=== PATIENT | female | born 1945 | race Caucasian/White ===

== ENCOUNTER 2024-12-26 17:49 | Emergency (ER) | payer MEDICARE, SELFPAY ==
[2024-12-26 17:54] VITALS: BP 162/74
[2024-12-26 21:44] VITALS: BP 135/56
[2024-12-26 21:45] VITALS: BMI 25.3
--- NOTE | 2024-12-26 21:48 | EDRN ---
the pt took 1000mg tylenol at Noon for neck pain. the pt took muscle relaxer Flexeril at 3pm today for neck pain.
[2024-12-26] MEDS: TYLENOL 1000 MG PO (22:18)
--- NOTE | 2024-12-26 22:22 | ED.MUSCINJ ---
HPI-Injury
General
Chief Complaint: Musculo-Skeletal Complaint
Time Seen by Provider: 12/26/24 22:00
Nursing documentation reviewed up to this point in time: agreed with
History of Present Illness-Injury
Initial Injury comments:
79-year-old female presents to the ER for evaluation of worsening neck pain over the last 2 weeks. No preceding trauma. She did previously have neck discomfort which was treated with injections at pain management 3 years ago. She states that her
blood sugars have been elevated-but reports the high was 150. She denies fevers. No paresthesias to arms or legs. No extremity weakness. She reports the pain to be radiating from her neck up to her head. She has been using Tylenol and Flexeril
without any improvement in her symptoms.
Review of Systems
Review of Systems
Allergies reviewed?: Yes
Phy Exam
Physical Exam
Physical Exam:
Patient is awake, alert, appears uncomfortable, head is normocephalic atraumatic, mucous membranes moist, speech is clear, with limited active range of motion of her neck, no midline pain on palpation of cervical spine, severe paraspinal
hypertonicity throughout cervical musculature and into bilateral trapezius-no overlying skin change, intact sensation to light touch symmetric bilateral upper extremities with equal senior bi developer strength and equal interosseous motor function, brisk cap
refill present to the hands, no weakness noted to arms or legs, GCS is 15
Injury Course
Orders/Labs/Results
Orders:
Orders
12/26/24 18:02
CT Cervical Spine W/o Iv Contr Urgent
Comment:
Reason For Exam: neck tenderness, neck and head pain
CT Head W/o Iv Contrast Urgent
Comment:
Reason For Exam: neck and head pain, throbbing
12/26/24 22:14
Acetaminophen [Tylenol] 1,000 mg PO NOW STA
12/26/24 22:22
diazePAM [Valium Injection] 5 mg IM NOW STA
12/26/24 22:35
Lidocaine [Lidocaine 4% Patch] 1 patch .ROUTE .STK-MED ONE
12/26/24 22:37
Lidocaine [Lidocaine 4% Patch] 1 patch TOPICAL NOW STA
Apply Lidocaine patch(s) to:: neck
12/27/24 08:00
Lidocaine [Lidocaine 4% Patch] 1 patch TOPICAL DAILY
Apply Lidocaine patch(s) to:: neck
MDM/Problems Addressed
Differential Diagnosis Includes:
Differential diagnosis to consider but not limited to muscle spasm, strain, osteoarthritis, cervical radiculopathy along with other etiologies considered
Chronic conditions affecting care:
Advanced age, A-fib, diabetes, long-term use of anticoagulant
*Radiology
Radiology exam reviewed: radiology read reviewed (FINDINGS: No acute fractures nor dislocations are noted. There is moderate disc space narrowing at C4/C5, C5/C6 and C6/C7. There is mild anterior and posterior osteophyte formation at these levels.
There is a less than grade 1 anterolisthesis of C3 on C4. Prevertebral soft tissues appear normal. IM)
*Pulse Oximetry
SaO2: 97
Oxygen Mode of Delivery: Room air
Patient hypoxic: no
*Critical Care Note
Total Time (30-74mins, 75-104mins- exclusive of procedures): Not Applicable
Update Note
Update Note:
I reviewed CT results with patient and family numbers present at bedside. Will treat symptomatically and reassess. I discussed with them need for follow-up with pain management for further care. Consideration of treatment includes pre-existing
diabetes-would avoid steroids at the current time. Cannot give NSAIDs due to long-term use of Eliquis. Will try Valium along with topical lidocaine
late entry- Patient feeling significantly better after Valium and topical lidocaine. Patient and feeling members present at bedside feel comfortable plan for discharge and outpatient follow-up. I discussed with the medication use at home along
with strict return precautions. They had no questions prior to leave the department.
ED Attending Note
-
Portions of this chart may have been created with voice recognition software.� Occasional wrong word or��sound alike� substitutions may have occurred due to the inherent limitations of voice recognition software.
Discharge Plan
Departure
Patient Disposition: Home (Routine Discharge)
Date of Disposition: 12/26/24
Time of Disposition: 23:28
Patient with high blood pressure during this ER visit?: Yes
Discharge Problem:
Neck pain
Instructions: Neck pain - ED (DC)
Prescriptions:
New
diazepam [Valium] 2 mg tablet
2 mg PO TID PRN (Reason: muscle spasm) Qty: 14 0RF
Referrals:
Anurag Fox MD [Active, Anesthesiology] - Next open appointment
PRIVATE,PHYSICIAN [Family Provider, Internal Medicine]
Activity Restrictions/Additional Instructions:
Continue using Tylenol for discomfort. Please also apply [id number] pain relieving patches (brand Salonpas or similar) he as per package instructions for additional pain relief. Use Valium as prescribed for muscle spasm. Please contact pain
management sme on Sunday to schedule appointment for reevaluation and further care. You may also follow-up with your family physician for additional assistance. Return to the ER for any concerns
Interventions
Interventions:
*Risk Screen - Suicide Last Done: 12/26/24 17:54
*General Assessment Last Done: 12/26/24 17:54
*Neglect/Abuse Screening Last Done: 12/26/24 21:45
*ED- Fall Risk Assessment Last Done: 12/26/24 21:45
*ED COVID-19 Vaccine History Last Done: 12/26/24 17:54
*ED Influenza Vaccine History Last Done: 12/26/24 17:54
*Nursing Disposition Last Done: 12/26/24 23:46
ED-Musculoskeletal Assessment Last Done: 12/26/24 21:46
Discharge Date and Time
Discharge Date/Time: 12/26/24 23:49
Print Language: TONGAN
[2024-12-26] MEDS: LIDOCAINE 4% PATCH 1 PATCH TOPICAL (22:40)
[2024-12-26] MEDS: VALIUM INJECTION 5 MG IM (22:43)
== END 2024-12-26 23:49 | disposition home or self-care (01) ==
LOC: EMR 17:49
PROVIDERS: EMERGENCY PHYSICIAN Emergency Medicine
DX: M54.2 Cervicalgia (principal); I48.91 Unspecified atrial fibrillation; E11.9 Type 2 diabetes mellitus without complications; Z79.01 Long term (current) use of anticoagulants
CPT/HCPCS: 96372; 99284; 70450; 72125

== ENCOUNTER → 2025-03-10 06:30 | Day surgery (SDC) | payer MEDICARE, SELFPAY ==
[2025-03-10 09:07] LABS: Glucose - Point of Care 138 mg/dl (70-99)
== END ==
LOC: GI 06:30
PROVIDERS: ATTENDING PHYSICIAN Internal Medicine Gastroenterology
DX: D50.9 Iron deficiency anemia, unspecified (principal); K64.8 Other hemorrhoids; K55.20 Angiodysplasia of colon without hemorrhage; K57.30 Diverticulosis of large intestine without perforation or abscess without bleeding; D17.5 Benign lipomatous neoplasm of intra-abdominal organs; D12.2 Benign neoplasm of ascending colon; K31.89 Other diseases of stomach and duodenum; K22.89 Other specified disease of esophagus; R89.7 Abnormal histological findings in specimens from other organs, systems and tissues
CPT/HCPCS: 45385; 45380; 45382; 43239; 82962; 88305; 88342